=== PATIENT | female | born 1985 | race Native Hawaiian/Other Pacific Islander ===

== ENCOUNTER 2016-03-28 18:47 | Inpatient (IN) | payer OTHER ==
[2016-03-28] MEDS: OXYTOCIN 30 UNITS/500 ML NS 30 UNIT in SALINE 1 500ML.BAG IV SCH (19:10)
--- NOTE | 2016-03-28 19:34 | ED ---
General Adult HPI - General Chief complaint: OB/Uterine Contractions Stated complaint: Active Labor,Delivery Time Seen by Provider: 03/28/16 18:47 Source: EMS, RN notes reviewed Mode of arrival: EMS Limitations: no limitations - History of Present Illness Initial comments: This is a 30-year-old female who arrives as a green party one in active labor with head and shoulders out of the vaginal canal according to EMS the baby has not progressed and mom is not feeling any cramping. I did not give much history on the mother because I was taking care of the baby and eventually Dr. Hansen showed up and took the mom upstairs. Mom stated that she had not felt the baby move since yesterday. Mom however did say she was 6 times including this and has 3 live children. The details of the other 2 I do not know. Mom was feeling a little abdominal discomfort but denied any problem breathing or any chest pain. At this point no other history was taken. - Related Data Home Medications Medication Instructions Recorded Confirmed No Known Home Medications [No 03/28/16 03/28/16 Known Home Medications] Allergies Allergy/AdvReac Type Severity Reaction Status Date / Time codeine Allergy Rash/Hives Verified 03/28/16 19:06 Review of Systems ROS Statement: Those systems with pertinent positive or pertinent negative responses have been documented in the HPI. ROS Other: All systems not noted in ROS Statement are negative. Past Medical History Additional Past Medical History / Comment(s): chronic back pain History of Any Multi-Drug Resistant Organisms: None Reported Past Surgical History: Appendectomy, Section, Hernia Repair Past Psychological History: Depression Smoking Status: Current every day smoker Past Alcohol Use History: Occasional Past Drug Use History: None Reported General Exam - General Exam Comments Initial Comments: A thorough physical exam was not done because at this time I was dealing with the baby and Dr. Hansen came in shortly thereafter took the patient upstairs. When I saw the patient she was alert and oriented 3 she did not appear to be in any respiratory distress. Upon vaginal delivery of the baby patient had a very foul smelling bloody discharge from the vagina but again no further investigation occurred at this time. Limitations: no limitations Course Vital Signs 03/28/16 18:50 Temperature 98.7 F Pulse Rate 106 H Respiratory 18 Rate Blood Pressure 140/65 O2 Sat by Pulse 100 Oximetry Medical Decision Making - Medical Decision Making On arrival to the emergency department the baby's head was protruding from the vagina as were the shoulders and at that point in time the nurses had the patient pull her legs more up towards her chest and I delivered the rest of the baby at that time there was a significant amount of brown and bloody fluid from the vagina which was extremely malodorous the cord was cut and clamped. Dr. Hansen arrived just as I was pronouncing the baby and he immediately took the patient upstairs to assess her. Disposition Clinical Impression: demise > 22 weeks, delivered, current hospitalization Disposition: ADMITTED IP TO THIS [facility] Time of Disposition: 19:32
[2016-03-28 19:38] VITALS: BMI 30.2
[2016-03-28] MEDS ORDERED: diphenhydrAMINE 25 MG CAP PO PRN (19:45)
[2016-03-28] MEDS ORDERED: ZOLPIDEM 5 MG TAB PO PRN (19:45)
[2016-03-28] MEDS ORDERED: HYDROCORTISONE 2.5% RECTAL CREAM 30 GM TUBE RECTAL PRN (19:45)
[2016-03-28] MEDS ORDERED: diphenhydrAMINE 50 MG/ML 1 ML VIAL IVP PRN (19:45)
[2016-03-28] MEDS ORDERED: SIMETHICONE 80 MG CHEWABLE PO PRN (19:45)
[2016-03-28] MEDS ORDERED: LANOLIN CREAM 5 GM TUBE TOPICAL PRN (19:45)
[2016-03-28] MEDS ORDERED: WITCH HAZEL 1 EACH MED..PAD TOPICAL PRN (19:45)
[2016-03-28] MEDS ORDERED: BENZOCAINE/MENTHOL SPRAY 1 GM/SPRAY AEROSOL TOPICAL PRN (19:45)
[2016-03-28] MEDS ORDERED: AMPICILLIN 2,000 MG in SODIUM CHLORIDE 0.9% 100 ML IVPB STA (19:54)
[2016-03-28] MEDS: IBUPROFEN 600 MG TAB PO PRN (19:59)
--- NOTE | 2016-03-28 20:00 | P.HPOB ---
History of Present Illness H&P Date: 03/28/16 Chief Complaint: Lower abdominal pain and This patient is a 30-year-old 6 para 4 female who is brought in by EMS through the emergency department with complaints of low back and low pelvic pain and labor. Patient's history is such that she states she's had no care. Her intention was to abort this when she got enough money to do this. Patient states that she had a. She thinks sometimes in August or September. She's had no ultrasounds or any other indication of her gestational age. Patient called EMS when she began having severe pain and apparently the head delivered in route to the hospital. A nonviable was subsequent delivered in route or at the hospital. had the appearance of skin peeling and a very foul order consistent with demise of greater than 24 hours. Patient's past obstetrical history per my computer shows that she's had [address] Ocasio, but as stated she has not sought any care this . Patient was having some what she felt was fevers at home but did not check her temperature. Review of Systems Constitutional: Reports chronic pain, Reports fever Cardiovascular: Denies chest pain, Denies shortness of breath Respiratory: Denies cough Genitourinary: Reports Menstruation: Reports amenorrhea Neurological: Denies numbness, Denies weakness Past Medical History Past Medical History: No Reported History Additional Past Medical History / Comment(s): chronic back pain History of Any Multi-Drug Resistant Organisms: None Reported Past Surgical History: Appendectomy, Section, Hernia Repair Past Anesthesia/Blood Transfusion Reactions: No Reported Reaction Past Psychological History: Depression Smoking Status: Current every day smoker Past Alcohol Use History: Occasional Additional Past Alcohol Use History / Comment(s): pack per day Past Drug Use History: None Reported - Past Family History Mother Family Medical History: No Reported History Medications and Allergies Home Medications Medication Instructions Recorded Confirmed Type No Known Home Medications [No 03/28/16 03/28/16 History Known Home Medications] Allergies Allergy/AdvReac Type Severity Reaction Status Date / Time codeine Allergy Rash/Hives Verified 03/28/16 19:06 Exam - OBG Physical Exam Abdomen: bowel sounds normal, no diffuse tenderness, no bruit present, no guarding noted, no hepatomegaly, no splenomegaly, no mass Vagina: Patient has bilateral periurethral superficial lacerations. Vagina: normal moisture, no discharge Cervix: Cervix is appearance. Uterus: enlarged Assessment and Plan (1) demise > 22 weeks, delivered, current hospitalization Narrative/Plan: This is a 30-year-old 6 para 4 female status post vaginal delivery of a nonviable suspected third trimester . The appearance of the infant shows it to probably admitted for several days at least greater than 24 hours. The placenta was completely expelled however cannot confirmed all the membranes were expelled I did explore the uterine cavity with a ring forcep and did not find any residual tissue the patient has minimal bleeding. The placenta is very odiferous consistent with a severe endometritis/ chorioamnionitis. CBC is pending at the time of this dictation. Plan at this time is to administer triple antibiotics, check blood work and a CBC. I am also going to order a pelvic ultrasound for tomorrow. At this time I see no indication for a D&C. There is a chance there may be some residual membranes however due to the severity of the infection I do not think a D&C would be beneficial to her at this time, therefore if she responds to antibiotics and has no significant bleeding we will just watch at this time. I did order a drug screen and routine blood work as well. We will also get a social work program coordinator consult. Status: Acute (2) Endometritis affecting Status: Acute (3) No care in current in third trimester Status: Acute
[2016-03-28] MEDS: LACTATED RINGERS 1,000 ML IV SCH (20:34)
[2016-03-28 20:47] LABS: CH 27.9; HCT 36.1 % (34.0-46.0); HDW 2.71; HGB 11.4 gm/dL (11.4-16.0); Hypochromasia Slight; Immature Gran Flag Moderate; MCH 27.7 pg (25.0-35.0); MCHC 31.6 g/dL (31.0-37.0); MCV 87.6 fL (80.0-100.0); Mean Platelet Volume 6.7; RBC 4.12 m/uL (3.80-5.40); RDW 14.7 % (11.5-15.5); WBC 18.1 k/uL (3.8-10.6); WBC (Perox) 19.79
[2016-03-28 20:50] LABS: ALT 42 U/L (9-52); AST 29 U/L (14-36); Alkaline Phosphatase 224 U/L (38-126); Anion Gap 13 mmol/L; Blood Urea Nitrogen 17 mg/dL (7-17); Calcium 8.5 mg/dL (8.4-10.2); Carbon Dioxide 19 mmol/L (22-30); Chloride 104 mmol/L (98-107); Glucose 170 mg/dL (74-99); Non-African American GFR(MDRD) >60 (>60 ml/min/1.73 sqM); Potassium 3.8 mmol/L (3.5-5.1); Sodium 136 mmol/L (137-145); Total Bilirubin 0.4 mg/dL (0.2-1.3)
[2016-03-28 21:48] LABS: Add Differential Manual Differential
[2016-03-28 21:52] LABS: Hepatitis B Surface Ag Index 0.06
[2016-03-28 21:54] LABS: Nucleated Red Blood Cells 0 /100 WBC (0-0); Total Cells Counted 200; Toxic Granulation Present; Toxic Vacuolation Present
[2016-03-28 21:55] LABS: Target Cells Present
[2016-03-29] MEDS: SENNOSIDES-DOCUSATE SODIUM 1 EACH TAB PO SCH ×3 (00:14→23:13)
[2016-03-29] MEDS: AMPICILLIN 1,000 MG in SODIUM CHLORIDE 0.9% 50 ML IVPB SCH ×6 (01:16→21:24)
[2016-03-29] MEDS: OXYTOCIN 30 UNITS/500 ML NS 30 UNIT in SALINE 1 500ML.BAG IV SCH ×2 (01:30→04:20)
[2016-03-29] MEDS: CLINDAMYCIN 900 MG in DEXTROSE 5% IN WATER 50 ML IVPB SCH ×6 (03:00→19:40)
[2016-03-29] MEDS: LACTATED RINGERS 1,000 ML IV SCH ×3 (04:20→19:50)
[2016-03-29] MEDS: ACETAMINOPHEN TAB 325 MG TAB PO PRN ×3 (04:21→20:09)
[2016-03-29] MEDS: IBUPROFEN 600 MG TAB PO PRN ×3 (06:22→16:44)
--- NOTE | 2016-03-29 07:24 | P.PNOBGVD ---
Subjective - Subjective Patient reports: Reports appetite normal, Reports voiding normally, Reports pain well controlled, Reports ambulating normally : Objective - Latest Vital Signs Latest vital signs: Vital Signs Temp Pulse Resp BP Pulse Ox 03/29/16 06:26 75 14 112/74 03/29/16 04:00 97.9 F 86 14 95/55 03/29/16 02:27 98.1 F 79 14 112/65 95 03/29/16 01:25 98.3 F 82 14 100/87 03/28/16 21:28 98.2 F 99 16 118/61 03/28/16 20:55 123 H 16 128/63 03/28/16 20:28 106 H 16 139/75 03/28/16 20:10 113 H 16 131/79 03/28/16 19:55 106 H 16 129/77 03/28/16 19:43 106 H 16 133/82 Intake and Output 03/28/16 03/29/16 03/29/16 22:59 06:59 14:59 Other: Voiding Method Toilet Toilet # Voids 1 1 Weight 68.039 kg - Exam Lungs: bilateral: normal Extremities: Present: normal Abdomen: Present: normal appearance, soft Uterus: Present: normal, firm - Labs Labs: Abnormal Lab Results - Last 24 Hours (Table) 03/28/16 03/28/16 03/28/16 Range/Units 20:17 20:24 22:00 WBC 18.1 H (3.8-10.6) k/uL Neutrophils # (Manual) 15.8 H (1.3-7.7) k/uL Sodium 136 L (137-145) mmol/L Carbon Dioxide 19 L (22-30) mmol/L Glucose 170 H (74-99) mg/dL Alkaline Phosphatase 224 H (38-126) U/L Total Protein 6.0 L (6.3-8.2) g/dL Albumin 2.8 L (3.5-5.0) g/dL Urine Opiates Screen Detected H (NotDetected) Ur Oxycodone Screen Detected H (NotDetected) Urine Cocaine Screen Detected H (NotDetected) U Marijuana (THC) Screen Detected H (NotDetected) Assessment and Plan (1) demise > 22 weeks, delivered, current hospitalization Narrative/Plan: This is day #1. Patient is resting without new complaints. Her uterus is firm and only slightly tender. She's having normal lochia. CBC last evening showed a white count of 18 and the repeat CBC is pending at this time. Patient's toxicology screen came back positive for multiple substances including cocaine, opiates, marijuana, and oxycodone. I did discuss this positive drug screen with the patient who a social science instructor consult was already placed. Plan today is to check a pelvic ultrasound although her bleeding is normal, continue triple antibiotics, and continue care. If the patient remains afebrile today, tomorrow I will change her over to oral antibiotics for a prolonged course. At this time it appears that her endometritis has responded to delivery and IV antibiotics and she is doing well. Current Visit: Yes Status: Acute Code(s): O36.4XX0 - MATERNAL CARE FOR INTRAUTERINE , NOT APPLICABLE OR UNSP SNOMED Code(s): 191047224 (2) Endometritis affecting Current Visit: Yes Status: Acute Code(s): O86.12 - ENDOMETRITIS FOLLOWING DELIVERY SNOMED Code(s): 87369633 (3) No care in current in third trimester Current Visit: Yes Status: Acute Code(s): O09.33 - SUPRVSN OF PREG W INSUFFICIENT ANTENAT CARE, THIRD TRIMESTER SNOMED Code(s): 932435370
[2016-03-29 07:26] LABS: Basophils # (A) 0.1 k/uL (0-0.2); Basophils % (A) 0 %; CHCM 32.3; Eosinophils # (A) 0.4 k/uL (0-0.7); Eosinophils % (A) 2 %; HCT 32.2 % (34.0-46.0); HDW 2.81; HGB 10.3 gm/dL (11.4-16.0); Luc # (Auto) 0.49; Luc % (Auto) 2; Lymphocytes # (A) 2.2 k/uL (1.0-4.8); Lymphocytes % (A) 10 %; MCHC 32.1 g/dL (31.0-37.0); MCV 87.2 fL (80.0-100.0); Mean Platelet Volume 6.8; Monocytes # (A) 0.9 k/uL (0-1.0); Monocytes % (A) 4 %; Neutrophils # (A) 18.1 k/uL (1.3-7.7); Neutrophils % (A) 82 %; RBC 3.69 m/uL (3.80-5.40); RDW 14.9 % (11.5-15.5); WBC 22.2 k/uL (3.8-10.6); WBC (Perox) 22.85
[2016-03-29] MEDS: GENTAMICIN 100 MG in SODIUM CHLORIDE 0.9% 100 ML IVPB SCH ×4 (08:35→15:40)
[2016-03-29 11:51] VITALS: RESP 16
[2016-03-29] MEDS ORDERED: MEASLES-MUMPS-RUBELLA VACC/PF 12,500 UNIT/0.5 ML VIAL SQ ONE (12:04)
--- NOTE | 2016-03-29 15:34 | US ---
EXAMINATION TYPE: US pelvic complete DATE OF EXAM: 03/29/2016 3:08 PM COMPARISON: NONE CLINICAL HISTORY: No care. Delivered demise. Unknown dates. Bleeding. Cramping.. TECHNIQUE: Transabdominal (TA) Date of LMP: unknown EXAM MEASUREMENTS: Uterus: 18.6 x 13.2 x 8.6 cm Right Ovary: 3.7 x 2.0 x 1.4 cm Left Ovary: 2.9 x 1.6 x 1.3 cm TECHNOLOGIST IMPRESSION: 1. Uterus: Enlarged, increased peripheral vascularity 2. Endometrium: fluid and debris seen 3. Right Ovary: wnl 4. Left Ovary: wnl 5. Bilateral Adnexa: wnl 6. Posterior cul-de-sac: no free fluid 7. Cervix- fluid and possible debris seen within cervical canal IMPRESSION: There is evidence of fluid and debris in the cervical canal and endometrial cavity consis tent with incomplete . Normal Values: Uterine Length: < 10cm Endometrium: Proliferative (Day 6 ? 14): 4 ? 6mm Secretory (Day 15 ? 28): 7 ? 14mm Post Menopausal (and not symptomatic): up to 8mm Post Menopausal (with vaginal bleeding): upper limits <5mm Post Menopausal with HRT: upper limits 8 - 15mm Post Menopausal with tamoxifen: < 6mm (although 50% of those receiving tamoxifen have been reported t o have thickness >8mm)
[2016-03-30] MEDS: GENTAMICIN 100 MG in SODIUM CHLORIDE 0.9% 100 ML IVPB SCH (00:08)
[2016-03-30] MEDS: OXYTOCIN 30 UNITS/500 ML NS 30 UNIT in SALINE 1 500ML.BAG IV SCH ×3 (00:22→02:17)
[2016-03-30 00:27] VITALS: BP 118/85; PULSE 80; TEMP 97
[2016-03-30] MEDS: AMPICILLIN 1,000 MG in SODIUM CHLORIDE 0.9% 50 ML IVPB SCH (01:19)
--- NOTE | 2016-03-31 06:31 | P.DS ---
Providers Date of admission: 03/28/16 19:27 Expected date of discharge: 03/29/16 (Patient left AGAINST MEDICAL ADVICE.) Attending physician: Ata Weeks Primary care physician: Stated None - Discharge Diagnosis(es) (1) demise > 22 weeks, delivered, current hospitalization Status: Acute (2) Endometritis affecting Status: Acute (3) No care in current in third trimester Status: Acute Hospital Course: Please see dictated H&P for intimate details of this patient's admission. Brief summary this is a 30-year-old multiparous patient who is brought in by EMS status post vaginal delivery of a nonviable suspected term fetus. Patient had no care. Examination of the baby showed it to be most likely for many days prior to admission. Patient was thought to have chorioamnionitis and was placed on triple antibiotics. Initial white count was 18. I did order a pelvic ultrasound the patient that did show questionable debris within the uterus however patient's bleeding was normal. Patient's drug screen came back positive for multiple substances including marijuana, cocaine, oxycodone, opioids. On the evening of March 29 this patient removed her IV by herself, called a taxicab, and left from the hospital AGAINST MEDICAL ADVICE. Patient Condition at Discharge: Undetermined Plan - Discharge Summary Discharge Medication List No Known Home Medications [No Known Home Medications] 03/28/16 [History] Follow up Appointment(s)/Referral(s): None,Stated [Primary Care Provider] - 1-2 days Discharge Disposition: Left Against Medical Advice
== END 2016-03-30 01:40 | disposition left against medical advice (07) | DRG 775 ==
LOC: EC 18:47 → 4FBP 19:21 → UNDOADMIN 19:21 → 4FBP 19:27
PROVIDERS: ADMIT Obstetrics & Gynecology; ATTEND Obstetrics & Gynecology
PROC: 10E0XZZ Delivery of Products of Conception, External Approach (ICD-10-PCS; principal; 2016-03-28)
DX: O36.4XX0 Maternal care for intrauterine death, not applicable or unspecified (principal); O23.592 Infection of other part of genital tract in pregnancy, second trimester; O99.334 Smoking (tobacco) complicating childbirth; O99.344 Other mental disorders complicating childbirth; F32.9 Major depressive disorder, single episode, unspecified; G89.29 Other chronic pain; M54.9 Dorsalgia, unspecified; O99.89 Other specified diseases and conditions complicating pregnancy, childbirth and the puerperium; Z37.1 Single stillbirth; Z3A.22 22 weeks gestation of pregnancy; Z88.5 Allergy status to narcotic agent
CPT/HCPCS: 76856; 80053; 80300; 85025; 86762; 86850; 86900; 86901; 87340; 88307; 99285

== ENCOUNTER → 2016-07-22 | Outpatient (CLI) | payer OTHER ==
--- NOTE | 2016-07-22 13:51 | XR ---
EXAMINATION TYPE: XR cervical spine comp DATE OF EXAM: 07/22/2016 1:26 PM COMPARISON: NONE HISTORY: Paresthesia TECHNIQUE: Four views are submitted. FINDINGS: The odontoid is intact. There are no compression deformities. The prevertebral soft tissue structur es are within normal limits. Posterior spondylosis C4-C5 with moderate degenerative disc disease. Mi ld to moderate changes at C5-C6 and moderate changes at C6-C7. Prevertebral soft tissue structures wi thin normal limits. Mild foraminal encroachment C4-C5 bilaterally. IMPRESSION: 1. Multilevel degenerative disc disease..
--- NOTE | 2016-07-22 13:53 | XR ---
EXAM TYPE: LUMBAR SPINE X RAY SERIES COMPARISON: NONE HISTORY: Low back pain TECHNIQUE: 4 views are submitted. FINDINGS: Alignment is anatomic. The pedicles are intact. The transverse processes are intact. There is no s pondylolysis or spondylolisthesis. IMPRESSION: 1. No acute process.
== END | disposition home or self-care (01) ==
LOC: RADXRMAIN 12:51
PROVIDERS: ATTEND Family Medicine
DX: M50.321 Other cervical disc degeneration at C4-C5 level (principal); M54.5 Low back pain
CPT/HCPCS: 72050; 72110

== ENCOUNTER 2016-11-08 14:10 | Emergency (ER) | payer OTHER ==
[2016-11-08 14:14] VITALS: RESP 20
[2016-11-08] MEDS ORDERED: ALBUTEROL NEBULIZED 2.5 MG/3 ML INHALATION STA (14:18)
[2016-11-08] MEDS ORDERED: Acetaminophen-Codeine 300-30mg TAB PO STA (14:18)
[2016-11-08] MEDS ORDERED: IBUPROFEN 800 MG TAB PO STA (14:18)
[2016-11-08] MEDS ORDERED: IPRATROPIUM 0.5 MG/2.5 ML NEBU INHALATION STA (14:18)
[2016-11-08] MEDS ORDERED: ACETAMINOPHEN TAB 325 MG TAB PO STA (14:18)
[2016-11-08] MEDS ORDERED: predniSONE 20 MG TAB PO STA (14:19)
--- NOTE | 2016-11-08 14:25 | ED ---
General Adult HPI - General Chief complaint: Shortness of Breath Stated complaint: Asthma Time Seen by Provider: 11/08/16 14:16 Source: patient, RN notes reviewed, old records reviewed Mode of arrival: ambulatory Limitations: no limitations - History of Present Illness Initial comments: This is a 31-year-old female to the ER for evaluation patient's for evaluation of shortness of breath, patient has increased cough congestion symptoms for 3 days now. Patient has severe asthma patient also continues to smoke. Patient noticed fever today. She is coughing up some increase in sputum green tinged. No travel history no sick contacts. - Related Data Home Medications Medication Instructions Recorded Confirmed Methadone HCl [Methadone Intensol] 95 mg PO DAILY 11/08/16 11/08/16 Previous Rx's Medication Instructions Recorded Albuterol Sulfate [Proair Hfa] 1 - 2 puff INHALATION Q4H PRN #1 11/08/16 inhaler Azithromycin [Zithromax Z-pack] 0 mg PO DIRECTED #6 tab 11/08/16 predniSONE 50 mg PO DAILY #5 tab 11/08/16 Allergies Allergy/AdvReac Type Severity Reaction Status Date / Time codeine Allergy Rash/Hives Verified 11/08/16 14:42 Review of Systems ROS Statement: Those systems with pertinent positive or pertinent negative responses have been documented in the HPI. ROS Other: All systems not noted in ROS Statement are negative. Past Medical History Past Medical History: Asthma Additional Past Medical History / Comment(s): chronic back pain History of Any Multi-Drug Resistant Organisms: None Reported Past Surgical History: Appendectomy, Section, Hernia Repair Past Anesthesia/Blood Transfusion Reactions: No Reported Reaction Past Psychological History: Depression Smoking Status: Current every day smoker Past Alcohol Use History: Occasional Past Drug Use History: None Reported - Past Family History Mother Family Medical History: No Reported History General Exam Limitations: no limitations General appearance: alert, in no apparent distress, anxious Head exam: Present: atraumatic, normocephalic, normal inspection Eye exam: Present: normal appearance, PERRL, EOMI. Absent: scleral icterus, conjunctival injection, periorbital swelling ENT exam: Present: normal exam, mucous membranes moist Neck exam: Present: normal inspection. Absent: tenderness, meningismus, lymphadenopathy Respiratory exam: Present: normal lung sounds bilaterally, wheezes, decreased breath sounds, prolonged expiratory. Absent: respiratory distress, rales, rhonchi, stridor Cardiovascular Exam: Present: regular rate, normal rhythm, normal heart sounds. Absent: systolic murmur, diastolic murmur, rubs, gallop, clicks GI/Abdominal exam: Present: soft, normal bowel sounds. Absent: distended, tenderness, guarding, rebound, rigid Extremities exam: Present: normal inspection, full ROM, normal capillary refill. Absent: tenderness, pedal edema, joint swelling, calf tenderness Back exam: Present: normal inspection Neurological exam: Present: alert, oriented X3, CN II-XII intact Psychiatric exam: Present: normal affect, normal mood Skin exam: Present: warm, dry, intact, normal color. Absent: rash Course Vital Signs 11/08/16 11/08/16 11/08/16 14:13 14:55 15:09 Temperature 100.8 F H Pulse Rate 90 90 90 Respiratory 20 Rate Blood Pressure 118/78 O2 Sat by Pulse 96 Oximetry - Reevaluation(s) Reevaluation #1: 11/08/16 15:28 Patient states her symptoms are improving and resolved with with him, would like to go home Medical Decision Making - Medical Decision Making 31 female in the ER with severe shortness of breath outpatient with shortness of breath and asthma exacerbation, care with pneumonia. Patient will be discharged home to return if symptoms worsen - Radiology Data Radiology results: report reviewed (Chest x-ray is positive for pneumonia), image reviewed Disposition Clinical Impression: Asthma with exacerbation, Community acquired pneumonia Disposition: HOME SELF-CARE Condition: Good Instructions: Asthma (ED), Community Acquired Pneumonia (ED) Prescriptions: Albuterol Sulfate [Proair Hfa] 1 - 2 puff INHALATION Q4H PRN #1 inhaler PRN Reason: Shortness Of Breath Azithromycin [Zithromax Z-pack] 0 mg PO DIRECTED #6 tab predniSONE 50 mg PO DAILY #5 tab Referrals: Soraya Kuhn MD [Primary Care Provider] - 1-2 days
--- NOTE | 2016-11-08 14:46 | XR ---
EXAMINATION TYPE: XR chest 2V DATE OF EXAM: 11/08/2016 COMPARISON: October 27, 2011. HISTORY: Chest pain TECHNIQUE: Frontal and lateral views of the chest are obtained. FINDINGS: There is a vague airspace opacity in the right lower lobe which could be related atelectas is or small focal pneumonia. The cardiac silhouette size is within normal limits. The osseous struc tures are intact. Mild levoconvex curvature of the thoracic spine is noted. IMPRESSION: There could be atelectasis versus pneumonia in the right lower lobe.
[2016-11-08] MEDS ORDERED: TERBUTALINE 1 MG/ML VIAL SQ STA (15:24)
[2016-11-08 16:00] VITALS: BP 124/62; PULSE 119; TEMP 98.9
== END 2016-11-08 16:05 | disposition home or self-care (01) ==
LOC: EC 14:10
DX: J45.901 Unspecified asthma with (acute) exacerbation (principal); J18.9 Pneumonia, unspecified organism; F17.200 Nicotine dependence, unspecified, uncomplicated; Z88.5 Allergy status to narcotic agent; Z79.891 Long term (current) use of opiate analgesic
CPT/HCPCS: 94644; 71020; 99285; 96372; J3105; J7512

== ENCOUNTER → 2018-11-01 | Outpatient (CLI) | payer OTHER | END | disposition home or self-care (01) | LOC: LABWHC1 09:20 | PROVIDERS: ATTEND Psychologist Clinical | DX: F11.20 Opioid dependence, uncomplicated (principal) | CPT/HCPCS: 36415; 80358 ==

== ENCOUNTER → 2022-01-23 | Outpatient (CLI) | payer OTHER ==
[2022-01-23 17:59] LABS: Basophils # (A) 0.04 X 10*3/uL (0.00-0.10); Basophils % (A) 0.4 %; Eosinophils # (A) 0.26 X 10*3/uL (0.04-0.35); Eosinophils % (A) 2.7 %; HCT 38.4 % (37.2-46.3); HGB 12.2 g/dL (12.0-15.0); Immature Grans, Automated 0.1 %; Lymphocytes # (A) 3.71 X 10*3/uL (0.90-5.00); Lymphocytes % (A) 38.2 %; MCH 27.2 pg (27.0-32.0); MCHC 31.8 g/dL (32.0-37.0); MCV 85.7 fL (80.0-97.0); Mean Platelet Volume 9.8 fL (9.5-12.2); Monocytes # (A) 0.57 X 10*3/uL (0.20-1.00); Monocytes % (A) 5.9 %; NRBC Per 100 WBC 0 /100 WBCS (0.0-0.0); Neutrophils # (A) 5.12 X 10*3/uL (1.80-7.70); Neutrophils % (A) 52.7 %; Platelet Count 332 X 10*3/uL (140-440); RBC 4.48 X 10*6/uL (4.10-5.20); RDW 13.8 % (11.5-14.5); WBC 9.71 X 10*3/uL (4.50-10.00)
[2022-01-23 18:19] LABS: ALT 52 U/L (8-44); AST 30 U/L (13-35); African American GFR (CKD) 127.4 (60.0-200.0); Albumin 3.9 g/dL (3.8-4.9); Alkaline Phosphatase 92 U/L (41-126); BUN/Creat Ratio 17.43 Ratio (12.00-20.00); Bilirubin, Conjugated <0.20 mg/dL (0.20-0.40); Blood Urea Nitrogen 12.2 mg/dL (9.0-27.0); Calcium 8.5 mg/dL (8.7-10.3); Carbon Dioxide 29.2 mmol/L (20.0-27.5); Chloride 103 mmol/L (96-109); Glucose 114 mg/dL (70-110); Non-African American GFR(CKD) 109.9 (60.0-200.0); Potassium 4.4 mmol/L (3.5-5.5); Sodium 138 mmol/L (135-145); Total Protein 6.9 g/dL (6.2-8.2)
[2022-01-23 18:44] LABS: Hepatitis B Core IgM Nonreactive (Nonreactive); Hepatitis B Surface Antigen Nonreactive (Nonreactive)
[2022-01-23 22:30] LABS: Alpha Fetoprotein, Tumor Mkr <1.82 ng/mL (0.00-7.90)
== END | disposition home or self-care (01) ==
LOC: LABWHC1 07:56
PROVIDERS: ATTEND Internal Medicine Gastroenterology
DX: B18.2 Chronic viral hepatitis C (principal)
CPT/HCPCS: 36415; 80053; 82105; 82248; 85025; 86704; 86705; 87340; 87522

== ENCOUNTER → 2022-01-27 | Outpatient (CLI) | payer OTHER ==
--- NOTE | 2022-01-27 13:00 | US ---
EXAMINATION TYPE: US liver DATE OF EXAM: 01/27/2022 COMPARISON: NONE CLINICAL HISTORY: B18.2 CHRONIC VIRAL HEPATITIS C. Hepatitis TECHNIQUE: Multiple sonographic images of the right upper quadrant are obtained. FINDINGS: EXAM MEASUREMENTS: Liver Length: 13.8 cm Gallbladder Wall: 0.3 cm CBD: 0.7 cm Right Kidney: 10.1 x 3.8 x 4.4 cm Pancreas: Duct = 0.2cm Mid body, within normal limits. Tail obscured by overlying bowel gas Liver: appears wnl Gallbladder: no evidence of stones Evidence for sonographic Goyal's sign: no CBD: dilated Right Kidney: no evidence of hydronephrosis IMPRESSION: 1. No acute abnormality right upper quadrant ultrasound.
== END | disposition home or self-care (01) ==
LOC: RADUSWWP 09:36
PROVIDERS: ATTEND Internal Medicine Gastroenterology
DX: B18.2 Chronic viral hepatitis C (principal)
CPT/HCPCS: 76705

== ENCOUNTER → 2022-07-07 | Outpatient (CLI) | payer OTHER ==
[2022-07-07 15:42] LABS: Basophils # (A) 0.05 X 10*3/uL (0.00-0.10); Basophils % (A) 0.6 %; Eosinophils # (A) 0.24 X 10*3/uL (0.04-0.35); Eosinophils % (A) 2.7 %; HGB 12.4 g/dL (12.0-15.0); Immature Grans, Automated 0.2 %; Lymphocytes # (A) 2.72 X 10*3/uL (0.90-5.00); Lymphocytes % (A) 30.8 %; MCH 27.4 pg (27.0-32.0); MCV 88.5 fL (80.0-97.0); Mean Platelet Volume 9.9 fL (9.5-12.2); Monocytes # (A) 0.44 X 10*3/uL (0.20-1.00); NRBC Per 100 WBC 0 /100 WBCS (0.0-0.0); Neutrophils # (A) 5.36 X 10*3/uL (1.80-7.70); Neutrophils % (A) 60.7 %; Platelet Count 294 X 10*3/uL (140-440); RBC 4.52 X 10*6/uL (4.10-5.20); RDW 14.3 % (11.5-14.5); WBC 8.83 X 10*3/uL (4.50-10.00)
[2022-07-07 16:00] LABS: African American GFR (CKD) 107.6 (60.0-200.0); Albumin 3.9 g/dL (3.8-4.9); Albumin/Globulin Ratio 1.3 (1.60-3.17); BUN/Creat Ratio 14.25 Ratio (12.00-20.00); Blood Urea Nitrogen 11.4 mg/dL (9.0-27.0); Calcium 8.8 mg/dL (8.7-10.3); Non-African American GFR(CKD) 92.9 (60.0-200.0); Potassium 4.2 mmol/L (3.5-5.5); Total Bilirubin 0.2 mg/dL (0.30-1.20); Total Protein 6.9 g/dL (6.2-8.2)
== END | disposition home or self-care (01) ==
LOC: LABWHC1 08:54
PROVIDERS: ATTEND Nurse Practitioner Family
DX: B18.2 Chronic viral hepatitis C (principal)
CPT/HCPCS: 36415; 80053; 85025; 87521

== ENCOUNTER 2023-04-15 08:54 | Emergency (ER) | payer SELFPAY ==
[2023-04-15] MEDS ORDERED: SODIUM CHLORIDE 0.9% 1,000 ML IV STA (09:14)
[2023-04-15] MEDS ORDERED: FAMOTIDINE 20 MG/2 ML VIAL IV STA (09:14)
--- NOTE | 2023-04-15 09:40 | ED ---
Abdominal Pain HPI - General Chief Complaint: Abdominal Pain Stated Complaint: Vomiting Time Seen by Provider: 04/15/23 08:59 Source: patient, RN notes reviewed Mode of arrival: ambulatory Limitations: no limitations - History of Present Illness Initial Comments: 38-year-old female presents emergency Department chief complaint of right-sided abdominal pain. Patient states it has worsened last couple weeks. She states it is worse when she eats she doesn't increasing reflux, heartburn issues. Patient states she's had a prior appendectomy, section denies any chance denies any dysuria hematuria. Denies fevers chills no chest pain or shortness of breath. - Related Data Home Medications Medication Instructions Recorded Confirmed Methadone HCl [Methadone Intensol] 140 mg PO DAILY 11/08/16 04/15/23 Norethindrone [Shania] 0.35 mg PO DAILY 04/15/23 04/15/23 Previous Rx's Medication Instructions Recorded Famotidine [Pepcid] 20 mg PO BID #28 tablet 04/15/23 Allergies Allergy/AdvReac Type Severity Reaction Status Date / Time codeine Allergy Itching Verified 04/15/23 14:14 Review of Systems ROS Statement: Those systems with pertinent positive or pertinent negative responses have been documented in the HPI. ROS Other: All systems not noted in ROS Statement are negative. Past Medical History Past Medical History: Asthma Additional Past Medical History / Comment(s): chronic back pain History of Any Multi-Drug Resistant Organisms: None Reported Past Surgical History: Appendectomy, Section, Hernia Repair Past Anesthesia/Blood Transfusion Reactions: No Reported Reaction Past Psychological History: Depression Smoking Status: Vaper Past Alcohol Use History: Occasional Past Drug Use History: None Reported, Marijuana - Past Family History Mother Family Medical History: No Reported History General Exam Limitations: no limitations General appearance: alert, in no apparent distress Head exam: Present: atraumatic, normocephalic, normal inspection Eye exam: Present: normal appearance, PERRL, EOMI. Absent: scleral icterus, con junctival injection, periorbital swelling ENT exam: Present: normal exam, normal oropharynx, mucous membranes moist Neck exam: Present: normal inspection, full ROM. Absent: tenderness, meningismus, lymphadenopathy Respiratory exam: Present: normal lung sounds bilaterally. Absent: respiratory distress, wheezes, rales, rhonchi, stridor Cardiovascular Exam: Present: regular rate, normal rhythm, normal heart sounds. Absent: systolic murmur, diastolic murmur, rubs, gallop, clicks GI/Abdominal exam: Present: soft, normal bowel sounds. Absent: distended, tenderness, guarding, rebound, rigid Back exam: Absent: CVA tenderness (R), CVA tenderness (L) Neurological exam: Present: alert Skin exam: Present: warm, dry, intact, normal color. Absent: rash Course Vital Signs 04/15/23 04/15/23 04/15/23 08:55 09:44 11:36 Temperature 98.5 F 97.9 F 97.9 F Pulse Rate 72 65 64 Respiratory 18 14 16 Rate Blood Pressure 135/96 104/64 96/52 O2 Sat by Pulse 99 99 96 Oximetry Medical Decision Making - Medical Decision Making Was pt. sent in by a medical professional or institution (Dr. PA, ASSISTANT PROFESSOR OF EDUCATION, urgent care, hospital, or fpc...) When possible be specific @ -No Did you speak to anyone other than the patient for history (EMS, parent, family, police, friend...)? What history was obtained from this source @ -No Did you review nursing and triage notes (agree or disagree)? Why? @ -I reviewed and agree with nursing and triage notes Were old charts reviewed (outside hosp., previous admission, EMS record, old EKG, old radiological studies, urgent care reports/EKG's, fpc records)? Report findings @ -No old charts were reviewed Differential Diagnosis (chest pain, altered mental status, abdominal pain women, abdominal pain men, vaginal bleeding, weakness, fever, dyspnea, syncope, headache, dizziness, GI bleed, back pain, seizure, CVA, palpatations, mental health, musculoskeletal)? @ -[nDifferential Abdominal Pain Women: Appendicitis, Cholecystitis, diverticulosis, ischemic bowel, pancreatitis, hepatitis, UTI, gastroenteritis, AAA, incarcerated hernia, bowel obstruction, constipation, inflammatory bowel, hepatitis, peptic ulcer disease, splenic infarction, perforated viscus, vulvitis, ovarian torsion, PID, kidney stone, placenta abruption, this is not meant to be an all-inclusive list EKG interpreted by me (3pts min.). @ -Non- X-rays interpreted by me (1pt min.). @ -None done CT interpreted by me (1pt min.). @ -None done U/S interpreted by me (1pt. min.). @ -[Ultrasound gallbladder shows dilated common bile duct, no evidence of acute cholecystitis cholelithiasis What testing was considered but not performed or refused? (CT, X-rays, U/S, labs)? Why? @ -HIDA scan though this was decided to be completed outpatient What meds were considered but not given or refused? Why? @ -None Did you discuss the management of the patient with other professionals (professionals i.e. , PA, ASSISTANT PROFESSOR OF EDUCATION, lab, RT, psych nurse, social sciences chair, manager business, teacher, network security officer, pillowcase turner)? Give summary @ -No Was smoking cessation discussed for >3mins.? @ -No Was critical care preformed (if so, how long)? @ -No Were there social determinants of health that impacted care today? How? (Homelessness, low income, unemployed, alcoholism, drug addiction, transportation, low edu. Level, literacy, decrease access to med. care, custodial, rehab)? @ -No Was there de-escalation of care discussed even if they declined (Discuss DNR or withdrawal of care, Hospice)? DNR status @ -No What co-morbidities impacted this encounter? (DM, HTN, Smoking, COPD, CAD, Cancer, CVA, ARF, Chemo, Hep., AIDS, mental health diagnosis, sleep apnea, morbid obesity)? @ -Hepatitis C Was patient admitted / discharged? Hospital course, mention meds given and route, prescriptions, significant lab abnormalities, going to OR and other pertinent info. @ -[Discharge patient felt improved after IV fluids. PATIENT MAY DYSFUNCTIONAL GALLBLADDER WE DISCUSSED FOLLOWING UP WITH GI, SURGERY FOR HIDA SCAN RETURN PARAMETERS WERE DISCUSSED. Undiagnosed new problem with uncertain prognosis? @ -No Drug Therapy requiring intensive monitoring for toxicity (Heparin, Nitro, Insulin, Cardizem)? @ -No Were any procedures done? @ -No Diagnosis/symptom? @ -Abdominal pain Acute, or Chronic, or Acute on Chronic? @ -Acute Uncomplicated (without systemic symptoms) or Complicated (systemic symptoms)? @ -Uncomplicated Side effects of treatment? @ -No Exacerbation, Progression, or Severe Exacerbation? @ -No Poses a threat to life or bodily function? How? (Chest pain, USA, [place], pneumonia, PE, COPD, DKA, ARF, appy, cholecystitis, CVA, Diverticulitis, Homicidal, Suicidal, threat to staff... and all critical care pts) @ -No - Lab Data Result diagrams: 04/15/23 09:57 04/15/23 09:57 Lab Results 04/15/23 04/15/23 04/15/23 Range/Units 09:57 09:57 09:57 WBC 9.5 (3.8-10.6) k/uL RBC 5.10 (3.80-5.40) m/uL Hgb 14.5 (11.4-16.0) gm/dL Hct 45.5 (34.0-46.0) % MCV 89.2 (80.0-100.0) fL MCH 28.4 (25.0-35.0) pg MCHC 31.8 (31.0-37.0) g/dL RDW 13.7 (11.5-15.5) % Plt Count 346 (150-450) k/uL MPV 6.9 Neutrophils % 66 % Lymphocytes % 27 % Monocytes % 5 % Eosinophils % 1 % Basophils % 0 % Neutrophils # 6.3 (1.3-7.7) k/uL Lymphocytes # 2.6 (1.0-4.8) k/uL Monocytes # 0.5 (0-1.0) k/uL Eosinophils # 0.1 (0-0.7) k/uL Basophils # 0.0 (0-0.2) k/uL Hypochromasia Slight Sodium (137-145) mmol/L Potassium (3.5-5.1) mmol/L Chloride (98-107) mmol/L Carbon Dioxide (22-30) mmol/L Anion Gap mmol/L BUN (7-17) mg/dL Creatinine (0.52-1.04) mg/dL Est GFR (CKD-EPI)AfAm (>60 ml/min/1.73 sqM) Est GFR (CKD-EPI)NonAf (>60 ml/min/1.73 sqM) Glucose (74-99) mg/dL Calcium (8.4-10.2) mg/dL Total Bilirubin (0.2-1.3) mg/dL AST (14-36) U/L ALT (4-34) U/L Alkaline Phosphatase (38-126) U/L Total Protein (6.3-8.2) g/dL Albumin (3.5-5.0) g/dL Lipase (23-300) U/L Urine Color Yellow Urine Appearance Turbid H (Clear) Urine pH 6.0 (5.0-8.0) Ur Specific [place] 1.037 H (1.001-1.035) Urine Protein 1+ H (Negative) Urine Glucose (UA) Negative (Negative) Urine Ketones Trace H (Negative) Urine Blood Negative (Negative) Urine Nitrite Negative (Negative) Urine Bilirubin Negative (Negative) Urine Urobilinogen 2.0 (<2.0) mg/dL Ur Leukocyte Esterase Trace H (Negative) Urine RBC 2 (0-5) /hpf Urine WBC 5 (0-5) /hpf Ur Squamous Epith Cells 91 H (0-4) /hpf Calcium Oxalate Crystal Moderate H (None) /hpf Urine Mucus Many H (None) /hpf Urine HCG, Qual Not Detected (Not Detectd) 04/15/23 Range/Units 09:57 WBC (3.8-10.6) k/uL RBC (3.80-5.40) m/uL Hgb (11.4-16.0) gm/dL Hct (34.0-46.0) % MCV (80.0-100.0) fL MCH (25.0-35.0) pg MCHC (31.0-37.0) g/dL RDW (11.5-15.5) % Plt Count (150-450) k/uL MPV Neutrophils % % Lymphocytes % % Monocytes % % Eosinophils % % Basophils % % Neutrophils # (1.3-7.7) k/uL Lymphocytes # (1.0-4.8) k/uL Monocytes # (0-1.0) k/uL Eosinophils # (0-0.7) k/uL Basophils # (0-0.2) k/uL Hypochromasia Sodium 138 (137-145) mmol/L Potassium 4.0 (3.5-5.1) mmol/L Chloride 106 (98-107) mmol/L Carbon Dioxide 28 (22-30) mmol/L Anion Gap 4 mmol/L BUN 9 (7-17) mg/dL Creatinine 0.71 (0.52-1.04) mg/dL Est GFR (CKD-EPI)AfAm >90 (>60 ml/min/1.73 sqM) Est GFR (CKD-EPI)NonAf >90 (>60 ml/min/1.73 sqM) Glucose 96 (74-99) mg/dL Calcium 9.0 (8.4-10.2) mg/dL Total Bilirubin 0.4 (0.2-1.3) mg/dL AST 23 (14-36) U/L ALT 21 (4-34) U/L Alkaline Phosphatase 67 (38-126) U/L Total Protein 7.3 (6.3-8.2) g/dL Albumin 4.0 (3.5-5.0) g/dL Lipase 34 (23-300) U/L Urine Color Urine Appearance (Clear) Urine pH (5.0-8.0) Ur Specific [place] (1.001-1.035) Urine Protein (Negative) Urine Glucose (UA) (Negative) Urine Ketones (Negative) Urine Blood (Negative) Urine Nitrite (Negative) Urine Bilirubin (Negative) Urine Urobilinogen (<2.0) mg/dL Ur Leukocyte Esterase (Negative) Urine RBC (0-5) /hpf Urine WBC (0-5) /hpf Ur Squamous Epith Cells (0-4) /hpf Calcium Oxalate Crystal (None) /hpf Urine Mucus (None) /hpf Urine HCG, Qual (Not Detectd) Disposition Clinical Impression: Abdominal pain, GERD (gastroesophageal reflux disease) Disposition: HOME SELF-CARE Condition: Stable Instructions (If sedation given, give patient instructions): Abdominal Pain (ED) Additional Instructions: Please return to the Emergency Department if symptoms worsen or any other concerns. Prescriptions: Famotidine [Pepcid] 20 mg PO BID #28 tablet Is patient prescribed a controlled substance at d/c from ED?: No Referrals: None,Stated [Primary Care Provider] - 1-2 days Ramon Dockery MD [STAFF PHYSICIAN] - 1-2 days Yaritza Marie MD [STAFF PHYSICIAN] - 1-2 days Time of Disposition: 11:21
[2023-04-15 10:06] VITALS: TEMP 97.9
[2023-04-15 10:12] LABS: Basophils % (A) 0 %; Eosinophils # (A) 0.1 k/uL (0-0.7); Eosinophils % (A) 1 %; HCT 45.5 % (34.0-46.0); HGB 14.5 gm/dL (11.4-16.0); Hypochromasia Slight; Lymphocytes # (A) 2.6 k/uL (1.0-4.8); Lymphocytes % (A) 27 %; MCH 28.4 pg (25.0-35.0); MCHC 31.8 g/dL (31.0-37.0); MCV 89.2 fL (80.0-100.0); Mean Platelet Volume 6.9; Monocytes # (A) 0.5 k/uL (0-1.0); Monocytes % (A) 5 %; Neutrophils # (A) 6.3 k/uL (1.3-7.7); Neutrophils % (A) 66 %; Platelet Count 346 k/uL (150-450); RDW 13.7 % (11.5-15.5); WBC 9.5 k/uL (3.8-10.6)
[2023-04-15 10:25] LABS: ALT 21 U/L (4-34); AST 23 U/L (14-36); African American GFR (CKD) >90 (>60 ml/min/1.73 sqM); Alkaline Phosphatase 67 U/L (38-126); Anion Gap 4 mmol/L; Blood Urea Nitrogen 9 mg/dL (7-17); Carbon Dioxide 28 mmol/L (22-30); Chloride 106 mmol/L (98-107); Glucose 96 mg/dL (74-99); Lipase 34 U/L (23-300); Non-African American GFR(CKD) >90 (>60 ml/min/1.73 sqM); Sodium 138 mmol/L (137-145); Total Bilirubin 0.4 mg/dL (0.2-1.3); Total Protein 7.3 g/dL (6.3-8.2)
[2023-04-15 10:38] LABS: Appearance,Urine Turbid (Clear); Bilirubin,Urine Negative (Negative); Blood,Urine Negative (Negative); Calcium Oxalate Crystals,Urine Moderate /hpf; Color,Urine Yellow; Glucose,Urine (UA) Negative (Negative); Ketones,Urine Trace (Negative); Leukocyte Esterase,Urine Trace (Negative); Mucus,Urine Many /hpf; Nitrite,Urine Negative (Negative); Protein,Urine 1+ (Negative); RBC,Urine 2 /hpf (0-5); Specific Gravity,Urine 1.037 (1.001-1.035); Squamous Epithelial Cell,Urine 91 /hpf (0-4); WBC,Urine 5 /hpf (0-5)
--- NOTE | 2023-04-15 10:54 | US ---
EXAMINATION TYPE: US gallbladder DATE OF EXAM: 04/15/2023 COMPARISON: US CLINICAL INDICATION: Female, 38 years old with history of pain; Pt states nausea TECHNIQUE: Multiple sonographic images of the right upper quadrant are obtained. FINDINGS: EXAM MEASUREMENTS: Liver Length: 15.9 cm Gallbladder Wall: 0.2 cm CBD: 0.8 cm Right Kidney: 9.3 x 3.9 x 4.5 cm LEAD TECHNICIAN NOTES: Pancreas: 2mm pnac duct visualized, tail obscured by overlying bowel gas Liver: Mildly coarsened which may be associated chronic hepatic disease Gallbladder: wnl Evidence for sonographic Goyal's sign: No CBD: Dilated Right Kidney: wnl, lower pole gassed out IMPRESSION: No gallstones. However, there is dilation of the distal CBD similar to prior exam at 8 mm. Further ev aluation with MRCP suggested.
[2023-04-15 11:50] VITALS: BP 96/52; PULSE 64; RESP 16
== END 2023-04-15 11:48 | disposition home or self-care (01) ==
LOC: EC 08:54
DX: K21.9 Gastro-esophageal reflux disease without esophagitis (principal); J45.909 Unspecified asthma, uncomplicated; F17.290 Nicotine dependence, other tobacco product, uncomplicated; F12.90 Cannabis use, unspecified, uncomplicated; Z88.5 Allergy status to narcotic agent; Z86.59 Personal history of other mental and behavioral disorders
CPT/HCPCS: 36415; 80053; 83690; 85025; 81001; 81025; 76705; 99284; 96374; 96361 ×2; J3490

== ENCOUNTER 2023-12-02 17:27 | Emergency (ER) | payer OTHER ==
[2023-12-02 17:37] VITALS: TEMP 98.5
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
[2023-12-02] MEDS: LIDOCAINE 1%-EPI 1:100,000 20 ML VIAL SQ STA (18:24)
[2023-12-02] MEDS: DIPH,PERTUS(ACELL)TETVAC-LF 0.5 ML VIAL IM ONE (18:25)
[2023-12-02 19:29] VITALS: BP 109/75; PULSE 78; RESP 16
== END 2023-12-02 19:29 | disposition home or self-care (01) ==
LOC: EC 17:27
CPT/HCPCS: 12011; 90471; 90715; 99283

== ENCOUNTER 2024-09-15 07:31 | Emergency (ER) | payer OTHER ==
--- NOTE | 2024-09-15 08:08 | ED ---
General Adult HPI - General Chief complaint: Nausea/Vomiting/Diarrhea Stated complaint: abd pain,vomiting Time Seen by Provider: 09/15/24 07:38 Source: patient, RN notes reviewed Mode of arrival: wheelchair Limitations: no limitations - History of Present Illness Initial comments: 39-year-old female presents to the emergency department for nausea and vomiting starting this morning. She notes that she has had difficulty tolerating p.o. intake since this morning. She reports feeling severely nauseated. She notes diffuse abdominal pain. Denies any fever, chills. Does note having a normal bowel movement this morning but has been constipated recently. - Related Data Home Medications Medication Instructions Recorded Confirmed Methadone HCl [Methadone Intensol] 140 mg PO DAILY 11/08/16 04/15/23 Norethindrone [Shania] 0.35 mg PO DAILY 04/15/23 04/15/23 Previous Rx's Medication Instructions Recorded Famotidine [Pepcid] 20 mg PO BID #28 tablet 04/15/23 Allergies Allergy/AdvReac Type Severity Reaction Status Date / Time codeine Allergy Itching Verified 09/15/24 07:36 Review of Systems ROS Statement: Those systems with pertinent positive or pertinent negative responses have been documented in the HPI. ROS Other: All systems not noted in ROS Statement are negative. Past Medical History Past Medical History: Asthma Additional Past Medical History / Comment(s): chronic back pain History of Any Multi-Drug Resistant Organisms: None Reported Past Surgical History: Appendectomy, Section, Hernia Repair Past Anesthesia/Blood Transfusion Reactions: No Reported Reaction Past Psychological History: Depression Smoking Status: Vaper Past Alcohol Use History: Occasional Past Drug Use History: None Reported, Marijuana - Past Family History Mother Family Medical History: No Reported History General Exam Limitations: no limitations General appearance: alert, in no apparent distress Head exam: Present: atraumatic, normocephalic, normal inspection Eye exam: Present: normal appearance, PERRL, EOMI. Absent: scleral icterus, conjunctival injection, periorbital swelling ENT exam: Present: normal exam, mucous membranes moist Respiratory exam: Present: normal lung sounds bilaterally. Absent: respiratory distress, wheezes, rales, rhonchi, stridor Cardiovascular Exam: Present: regular rate, normal rhythm, normal heart sounds. Absent: systolic murmur, diastolic murmur, rubs, gallop, clicks GI/Abdominal exam: Present: soft, normal bowel sounds. Absent: distended, tenderness, guarding, rebound, rigid Extremities exam: Present: normal inspection, full ROM, normal capillary refill. Absent: tenderness, pedal edema, joint swelling, calf tenderness Back exam: Present: normal inspection Neurological exam: Present: alert, oriented X3 Psychiatric exam: Present: agitated Skin exam: Present: warm, dry, intact, normal color. Absent: rash Course Vital Signs 09/15/24 09/15/24 09/15/24 07:33 08:34 09:48 Temperature 97.4 F L 97.6 F Pulse Rate 88 94 56 L Respiratory 18 20 15 Rate Blood Pressure 116/79 117/99 O2 Sat by Pulse 100 100 Oximetry 09/15/24 11:29 Temperature Pulse Rate 90 Respiratory 15 Rate Blood Pressure 114/85 O2 Sat by Pulse 100 Oximetry Medical Decision Making - Medical Decision Making Was pt. sent in by a medical professional or institution (, PA, CYBER CRIME INVESTIGATOR, urgent care, hospital, or [facility]...) When possible be specific @ -[No] Did you speak to anyone other than the patient for history (EMS, parent, family, police, friend...)? What history was obtained from this source @ -[No] Did you review nursing and triage notes (agree or disagree)? Why? @ -[I reviewed and agree with nursing and triage notes] Were old charts reviewed (outside hosp., previous admission, EMS record, old EKG, old radiological studies, urgent care reports/EKG's, [facility] records)? Report findings @ -[No old charts were reviewed] Differential Diagnosis (chest pain, altered mental status, abdominal pain women, abdominal pain men, vaginal bleeding, weakness, fever, dyspnea, syncope, headache, dizziness, GI bleed, back pain, seizure, CVA, palpatations, mental h ealth, musculoskeletal)? @ -[Differential Abdominal Pain Women: Appendicitis, Cholecystitis, diverticulosis, ischemic bowel, pancreatitis, hepatitis, UTI, gastroenteritis, AAA, incarcerated hernia, bowel obstruction, constipation, inflammatory bowel, hepatitis, peptic ulcer disease, splenic infarction, perforated viscus, vulvitis, ovarian torsion, PID, kidney stone, placenta abruption, this is not meant to be an all-inclusive list ] EKG interpreted by me (3pts min.). @ -EKG@828 shows sinus rhythm with sinus arrhythmia rate 86, CA 146, QRS 86, QTQTc [id number] X-rays interpreted by me (1pt min.). @ -[None done] CT interpreted by me (1pt min.). @ -[None done] U/S interpreted by me (1pt. min.). @ -[None done] What testing was considered but not performed or refused? (CT, X-rays, U/S, labs )? Why? @ -[None] What meds were considered but not given or refused? Why? @ -[None] Did you discuss the management of the patient with other professionals (professionals i.e. DrRegina, PA, CYBER CRIME INVESTIGATOR, lab, RT, psych nurse, social services director, receiver setter, teacher, delinquency prevention officer, case management social worker)? Give summary @ -[No] Was smoking cessation discussed for >3mins.? @ -[No] Was critical care preformed (if so, how long)? @ -[No] Were there social determinants of health that impacted care today? How? (Homelessness, low income, unemployed, alcoholism, drug addiction, transportation, low edu. Level, literacy, decrease access to med. care, half-way, rehab)? @ -[No] Was there de-escalation of care discussed even if they declined (Discuss DNR or withdrawal of care, Hospice)? DNR status @ -[No] What co-morbidities impacted this encounter? (DM, HTN, Smoking, COPD, CAD, Cancer, CVA, ARF, Chemo, Hep., AIDS, mental health diagnosis, sleep apnea, morbid obesity)? @ -[None] Was patient admitted / discharged? Hospital course, mention meds given and route, prescriptions, significant lab abnormalities, going to OR and other pertinent info. @ -[hospital course] Undiagnosed new problem with uncertain prognosis? @ -[No] Drug Therapy requiring intensive monitoring for toxicity (Heparin, Nitro, Insulin, Cardizem)? @ -[No] Were any procedures done? @ -[No] Diagnosis/symptom? @ -[default] Acute, or Chronic, or Acute on Chronic? @ -[default] Uncomplicated (without systemic symptoms) or Complicated (systemic symptoms)? @ -[default] Side effects of treatment? @ -[No] Exacerbation, Progression, or Severe Exacerbation? @ -[No] Poses a threat to life or bodily function? How? (Chest pain, USA, LA, pneumonia, PE, COPD, DKA, ARF, appy, cholecystitis, CVA, Diverticulitis, Homicidal, Suicidal, threat to staff... and all critical care pts) @ -[No] - Lab Data Result diagrams: 09/15/24 08:11 09/15/24 08:11 Lab Results 09/15/24 09/15/24 09/15/24 Range/Units 08:11 08:11 11:28 WBC 8.19 (4.50-10.00) 10*3/uL RBC 4.90 (4.10-5.20) 10*6/uL Hgb 14.3 (12.0-15.0) g/dL Hct 42.4 (37.2-46.3) % MCV 86.5 (80.0-97.0) fL MCH 29.2 (27.0-32.0) pg MCHC 33.7 (32.0-37.0) g/dL Plt Count 269 (140-440) 10*3/uL MPV 9.4 L (9.5-12.2) fL Immature Gran % (Auto) 0.2 % Neutrophils % 71.4 % Lymphocytes % 22.7 % Monocytes % 4.5 % Eosinophils % 0.6 % Basophils % 0.6 % Immature Gran # 0.02 (0.00-0.04) 10*3/uL Neutrophils # 5.84 (1.80-7.70) 10*3/uL Lymphocytes # 1.86 (0.90-5.00) 10*3/uL Monocytes # 0.37 (0.20-1.00) 10*3/uL Eosinophils # 0.05 (0.04-0.35) 10*3/uL Basophils # 0.05 (0.00-0.10) 10*3/uL Sodium 138 (137-145) mmol/L Potassium 3.2 L (3.5-5.1) mmol/L Chloride 105 (98-107) mmol/L Carbon Dioxide 21 L (22-30) mmol/L Anion Gap 12 mmol/L BUN 10 (7-17) mg/dL Creatinine 0.59 (0.52-1.04) mg/dL Est GFR (CKD-EPI)AfAm >90 (>60 ml/min/1.73 sqM) Est GFR (CKD-EPI)NonAf >90 (>60 ml/min/1.73 sqM) Glucose 119 H (74-99) mg/dL Calcium 9.9 (8.4-10.2) mg/dL Total Bilirubin 0.9 (0.2-1.3) mg/dL AST 45 H (14-36) U/L ALT 23 (4-34) U/L Alkaline Phosphatase 59 (38-126) U/L Total Protein 7.9 (6.3-8.2) g/dL Albumin 5.0 (3.5-5.0) g/dL Amylase 43 (30-110) U/L Lipase 52 (23-300) U/L Urine Color Colorless Urine Appearance Clear (Clear) Urine pH 8.5 H (5.0-8.0) Ur Specific [place] 1.019 (1.001-1.035) Urine Protein Negative (Negative) Urine Glucose (UA) Negative (Negative) Urine Ketones 3+ H (Negative) Urine Blood Negative (Negative) Urine Nitrite Negative (Negative) Urine Bilirubin Negative (Negative) Urine Urobilinogen <2.0 (<2.0) mg/dL Ur Leukocyte Esterase Negative (Negative) Urine HCG, Qual (Not Detectd) Urine Opiates Screen (NotDetected) Ur Oxycodone Screen (NotDetected) Urine Methadone Screen (NotDetected) Ur Barbiturates Screen (NotDetected) U Tricyclic Antidepress (NotDetected) Ur Phencyclidine Scrn (NotDetected) Ur Amphetamines Screen (NotDetected) U Methamphetamines Scrn (NotDetected) U Benzodiazepines Scrn (NotDetected) Urine Cocaine Screen (NotDetected) U Marijuana (THC) Screen (NotDetected) 09/15/24 09/15/24 Range/Units 11:28 11:28 WBC (4.50-10.00) 10*3/uL RBC (4.10-5.20) 10*6/uL Hgb (12.0-15.0) g/dL Hct (37.2-46.3) % MCV (80.0-97.0) fL MCH (27.0-32.0) pg MCHC (32.0-37.0) g/dL Plt Count (140-440) 10*3/uL MPV (9.5-12.2) fL Immature Gran % (Auto) % Neutrophils % % Lymphocytes % % Monocytes % % Eosinophils % % Basophils % % Immature Gran # (0.00-0.04) 10*3/uL Neutrophils # (1.80-7.70) 10*3/uL Lymphocytes # (0.90-5.00) 10*3/uL Monocytes # (0.20-1.00) 10*3/uL Eosinophils # (0.04-0.35) 10*3/uL Basophils # (0.00-0.10) 10*3/uL Sodium (137-145) mmol/L Potassium (3.5-5.1) mmol/L Chloride (98-107) mmol/L Carbon Dioxide (22-30) mmol/L Anion Gap mmol/L BUN (7-17) mg/dL Creatinine (0.52-1.04) mg/dL Est GFR (CKD-EPI)AfAm (>60 ml/min/1.73 sqM) Est GFR (CKD-EPI)NonAf (>60 ml/min/1.73 sqM) Glucose (74-99) mg/dL Calcium (8.4-10.2) mg/dL Total Bilirubin (0.2-1.3) mg/dL AST (14-36) U/L ALT (4-34) U/L Alkaline Phosphatase (38-126) U/L Total Protein (6.3-8.2) g/dL Albumin (3.5-5.0) g/dL Amylase (30-110) U/L Lipase (23-300) U/L Urine Color Urine Appearance (Clear) Urine pH (5.0-8.0) Ur Specific [place] (1.001-1.035) Urine Protein (Negative) Urine Glucose (UA) (Negative) Urine Ketones (Negative) Urine Blood (Negative) Urine Nitrite (Negative) Urine Bilirubin (Negative) Urine Urobilinogen (<2.0) mg/dL Ur Leukocyte Esterase (Negative) Urine HCG, Qual Not Detected (Not Detectd) Urine Opiates Screen Detected H (NotDetected) Ur Oxycodone Screen Not Detected (NotDetected) Urine Methadone Screen Detected H (NotDetected) Ur Barbiturates Screen Not Detected (NotDetected) U Tricyclic Antidepress Not Detected (NotDetected) Ur Phencyclidine Scrn Not Detected (NotDetected) Ur Amphetamines Screen Not Detected (NotDetected) U Methamphetamines Scrn Not Detected (NotDetected) U Benzodiazepines Scrn Not Detected (NotDetected) Urine Cocaine Screen Not Detected (NotDetected) U Marijuana (THC) Screen Detected H (NotDetected) Disposition Clinical Impression: Nausea and vomiting Disposition: HOME SELF-CARE Condition: Stable Instructions (If sedation given, give patient instructions): Acute Nausea and Vomiting (ED) Additional Instructions: Please follow up with your doctor. Return to the emergency department for new or worsening symptoms. Is patient prescribed a controlled substance at d/c from ED?: No Referrals: None,Stated [Primary Care Provider] - 1-2 days Pablito Hatfield DO [Medical Doctor] - 1-2 days Forms: [facility] Area PCPs
[2024-09-15] MEDS: ONDANSETRON 4 MG/2 ML VIAL IVP STA (08:19)
[2024-09-15] MEDS: SODIUM CHLORIDE 0.9% 1,000 ML IV SCH (08:19)
[2024-09-15 08:38] LABS: Basophils # (A) 0.05 10*3/uL (0.00-0.10); Basophils % (A) 0.6 %; Eosinophils # (A) 0.05 10*3/uL (0.04-0.35); Eosinophils % (A) 0.6 %; HCT 42.4 % (37.2-46.3); HGB 14.3 g/dL (12.0-15.0); Lymphocytes # (A) 1.86 10*3/uL (0.90-5.00); Lymphocytes % (A) 22.7 %; MCH 29.2 pg (27.0-32.0); MCHC 33.7 g/dL (32.0-37.0); MCV 86.5 fL (80.0-97.0); Mean Platelet Volume 9.4 fL (9.5-12.2); Monocytes # (A) 0.37 10*3/uL (0.20-1.00); Monocytes % (A) 4.5 %; Neutrophils # (A) 5.84 10*3/uL (1.80-7.70); Neutrophils % (A) 71.4 %; Platelet Count 269 10*3/uL (140-440); WBC 8.19 10*3/uL (4.50-10.00)
[2024-09-15 08:57] LABS: ALT 23 U/L (4-34); AST 45 U/L (14-36); African American GFR (CKD) >90 (>60 ml/min/1.73 sqM); Alkaline Phosphatase 59 U/L (38-126); Amylase 43 U/L (30-110); Anion Gap 12 mmol/L; Blood Urea Nitrogen 10 mg/dL (7-17); Calcium 9.9 mg/dL (8.4-10.2); Carbon Dioxide 21 mmol/L (22-30); Chloride 105 mmol/L (98-107); Glucose 119 mg/dL (74-99); Lipase 52 U/L (23-300); Non-African American GFR(CKD) >90 (>60 ml/min/1.73 sqM); Potassium 3.2 mmol/L (3.5-5.1); Sodium 138 mmol/L (137-145); Total Bilirubin 0.9 mg/dL (0.2-1.3); Total Protein 7.9 g/dL (6.3-8.2)
--- NOTE | 2024-09-15 10:20 | US ---
EXAMINATION TYPE: US gallbladder DATE OF EXAM: 09/15/2024 COMPARISON: NONE CLINICAL INDICATION: Female, 39 years old with history of pain; Patient having extreme pain and canno t hold still, back pain, N/V TECHNIQUE: Grayscale and color Doppler imaging of the right upper quadrant was performed. FINDINGS: EXAM MEASUREMENTS: Liver Length: 14.0 cm Gallbladder Wall: 0.2 cm CBD: 0.8cm Right Kidney: 9.7 x 4.5 x 3.5 cm CRITICAL CARE UNIT MANAGER NOTES:patient thrashing, had to martinez exam Pancreas: wnl Liver: wnl Gallbladder: wnl Evidence for sonographic Goyal's sign: yes CBD: wnl Right Kidney: wnl IMPRESSION: No evidence for acute process. [facility], , 09/15/2024 10:17 AM
[2024-09-15] MEDS: POTASSIUM CHLORIDE ER 20 MEQ TAB.ER PO STA (11:18)
[2024-09-15] MEDS: PROCHLORPERAZINE INJ 10 MG/2 ML VIAL IVP STA (11:18)
[2024-09-15 11:47] LABS: Appearance,Urine Clear (Clear); Bilirubin,Urine Negative (Negative); Blood,Urine Negative (Negative); Color,Urine Colorless; Glucose,Urine (UA) Negative (Negative); Ketones,Urine 3+ (Negative); Leukocyte Esterase,Urine Negative (Negative); Nitrite,Urine Negative (Negative); PH, Urine 8.5 (5.0-8.0); Protein,Urine Negative (Negative); Specific Gravity,Urine 1.019 (1.001-1.035); Urobilinogen,Urine <2.0 mg/dL (<2.0)
[2024-09-15 11:57] LABS: Amphetamine Screen,Urine Not Detected (NotDetected); Benzodiazepines Screen,Urine Not Detected (NotDetected); Cocaine Screen,Urine Not Detected (NotDetected); Opiate Screen,Urine Detected (NotDetected); Phencyclidine Screen,Urine Not Detected (NotDetected); Tricyclic Antidepressant,Urine Not Detected (NotDetected); Urn Cannabinoid Scrn Detected (NotDetected)
[2024-09-15 11:58] LABS: Barbiturate Screen,Urine Not Detected (NotDetected); Methadone Screen, Urine Detected (NotDetected); Oxycodone Screen, Urine Not Detected (NotDetected)
[2024-09-15] MEDS: ONDANSETRON 4 MG ODT STARTER PACK 2 TAB BTL PO STA (12:40)
[2024-09-15 12:50] VITALS: BP 116/75; PULSE 68; RESP 19; TEMP 97.9
== END 2024-09-15 12:50 | disposition home or self-care (01) ==
LOC: EC 07:31
DX: R11.2 Nausea with vomiting, unspecified (principal); F17.290 Nicotine dependence, other tobacco product, uncomplicated; Z88.5 Allergy status to narcotic agent
CPT/HCPCS: 36415; 93005; 80053; 82150; 83690; 85025; 81003; 81025; 80306; 76705; 99284; 96374; 96375; 96361; J0780; J2405; S0119